=== PATIENT | female | born 1995 | race Caucasian/White ===

== ENCOUNTER 2017-04-18 06:00 | Inpatient (IN) ==
[2017-04-18] MEDS ORDERED: D5LR 1,000 ML IV PRN (06:07)
[2017-04-18] MEDS ORDERED: ACETAMINOPHEN 500 MG TABLET PO PRN (06:07)
[2017-04-18] MEDS ORDERED: LIDOCAINE 1% (10mg/ml) 2mL INJ PF SDV ID PRN (06:07)
[2017-04-18] MEDS ORDERED: OXYTOCIN DRIP 30 UNIT/500 ML ML IV PRN (06:07)
[2017-04-18] MEDS ORDERED: METHYLERGONOVINE 0.2 MG/ML INJECTION IM PRN (06:07)
[2017-04-18] MEDS ORDERED: CALCIUM CARBONATE Chewable 500mg TABLET PO PRN (06:07)
[2017-04-18] MEDS ORDERED: MAG-AL + SIM ORAL LIQUID 30ml PO PRN (06:07)
--- OUTSIDE RECORDS SUMMARY | 2017-04-18 06:09 | External Medical Summary | Continuity of Care Document ---
:1995 Author Organization [facility] Address [address] [place], [place] [id number] Phone Support Name Relationship Address Phone Wai Oconnor parent [address] [phone] [place] [address] Allergies, Adverse Reactions, Alerts Substance Reaction Severity Status No Known Drug Allergies Unknown Active Medications Medication Instructions Dosage Effective Dates Status Comments (start - stop) aspirin 81 mg take 1 tablet by 81 MG - Active tablet,delayed ORAL route every release day Vitamin take 1 tablet by Not Available - Active tablet oral route every day Problems Condition Effective Dates (start - stop) Clinical Status Encounter for suprvsn of normal - , second trimester 24 weeks gestation of - Encntr screen for infections w sexl - mode of transmiss Encounter for screening for oth - infec/parastc diseases Encounter for suprvsn of normal - , first trimester Encounter for screening of - mother 9 weeks gestation of - Encntr for suprvsn of normal first - preg, second trimester 19 weeks gestation of - Menometrorrhagia Encounter for surveillance of contraceptive pills Menometrorrhagia Encounter for surveillance of contraceptive pills Menometrorrhagia - Maternal care for excess growth, - second tri, unsp 19 weeks gestation of - Encntr for suprvsn of normal first - preg, first trimester Less than 8 weeks gestation of - Encntr for suprvsn of normal first - preg, first trimester 13 weeks gestation of - Procedures Procedure Date OB Visit No Charge Results Test Name Date and Time Measure Units Reference Range Abnormal Flag Comments Unknown Advance Directives Directive Yes / No Effective Date File Name Unknown Encounters Encounter Practice Location Reason(s) Diagnoses Date Provider Care Team Description For Visit Members Enoch Mtz Encounter for Dec- Mars Referring In Womens suprvsn of normal 3-201 Izabela. Provider: Jj HERNANDEZ, , second 7 [address] [id number] weeks Medical [facility], 1522, gestation of Center [address] [place] [address], , [facility], 120, [place] , [id number], Smith [facility], [place], [address]. tel:[phone] tel: , . [id number] tel: [phone] Enoch Mtz Encntr for Brandin-0 Mars Referring In Womens suprvsn of normal 8-201 Izabela. Provider: Jj HERNANDEZ, first preg, 7 [address] second Medical [facility], 1522, [email or web address] weeks Center [address] [place] [address], gestation of Dr [facility], 120, [place] , [id number], Smith [facility], [place], [address]. tel:[phone] tel: , [place]. [id number] tel: [phone] Enoch Mtz Maternal care for Brandin-0 Mars Referring In Womens Ultrasound excess 8-201 Izabela. Provider: Jj HERNANDEZ, growth, second 7 [address] tri, [id number] weeks Medical [facility], 1522, gestation of Center [address] [place] [address], Dr [facility], [address], [place] , [id number], Smith [facility], [place], [address]. tel:[phone] tel: , . [id number] tel: [phone] Enoch Mtz Encntr for Apr-2 Mars Referring In Womens suprvsn of normal 5-201 Izabela. Provider: Jj HERNANDEZ, first preg, first 7 [address] [email or web address] weeks Medical [facility], 1522, gestation of Center [address] [place] [address], , [facility], 120, Center , [id number], Smith [facility], [place], [address]. tel: tel: , [place]. [id number] tel: [phone] Enoch Mtz Encntr screen for Mar-2 Mars Referring In Womens infections w sexl 8-201 Izabela. Provider: Jj HERNANDEZ, mode of 7 [address] Box transmissEncounte [facility], 1522, r for screening Center [address] [place] [address], for oth , [facility], infec/parastc 120, Center , [id number], diseasesEncounter Smith [facility]tz, [place], [address]. tel: normal , tel: [facility] , [place]. [id number] trimesterEncounte tel: r for [phone] screening of mother9 weeks gestation of [facility] for Mar-0 Mars Referring In Womens suprvsn of normal 8-201 Izabela. Provider: Jj HERNANDEZ, first preg, first 7 [address] Box trimesterLess Medical [facility], 1522, than 8 weeks [address] [place] [address], gestation of Dr, [facility], 120, [place] , [id number], Smith [facility], [place], [address]. tel:[phone] tel: , [place]. [id number] tel: [phone] Enoch Mtz MenometrorrhagiaE Mar-2 Mars Referring In Womens ncounter for 8-201 Izabela. Provider: Jj HERNANDEZ, surveillance of [address] Box contraceptive Medical [facility], 1522, pills Center [facility] Kristine, , [facility], 120, Center , [id number], [facility], [place], [address]. tel:[phone] tel: , [place]. [id number] tel: [phone] Enoch Mtz Menometrorrhagia Mar-2 Mars Referring In Womens Ultrasound 8-201 Izabela. Provider: Jj HERNANDEZ, 6 [address] Medical [facility], 1522, Center [address] Kristine, [facility], 120, [place] , [id number], [facility], [place], [address]. tel: [phone] tel: , . [id number] tel: [phone] Enoch Mtz MenometrorrhagiaE Mars Referring [facility]201 Izabela. Provider: Health MARY, surveillance of 6 [address] PO Box contraceptive Medical [facility], 1522, pills Center [address] Kristine, [facility], 120, [place] , [id number], Smith [facility], [place], [address]. tel: [phone] tel:[phone] , . [id number] tel: [phone] Family History Family Member Diagnosis Age At Onset Maternal Grandmother Cancer, breast Immunizations Vaccine Date Status Comments Unknown Payers Payer name Insurance type Covered green party ID Authorization(s) [facility] [id number] Social History Type Description Quantity Date Captured Alcohol Use Details No Caffeine Use Details Unknown Tobacco Use Status Smoking Status Former smoker Vital Signs Date / Height Weight BMI Pulse Blood Temperature Respiratory Body Head BMI Time: Rate Pressure Rate Surface Circumference percentile Area 215.40 35.8 125/81 -2017 lbs 4 mm[Hg] 10:00 kg/m AM eter (2) 35.0 -2017 9 9:38 kg/m AM eter (2) Chief Complaint And Reason For Visit Unknown Chief Complaint And Reason For Visit Reason For Referral Reason For Referral Unknown Plan Of Care Date Type Action Status Goal Tobacco cessation counseling completed Goal Tobacco cessation counseling completed Future Order: Lab Order Pap Smear With HPV Reflex If Ordered ASCUS ([id number]) Future Order: Radiology Order Transvaginal Pelvic Ultrasound Ordered ([id number]) Future Order: Radiology Order Complete OB Ultrasound > 14 Ordered Weeks ([id number]) Date Type Problem Goal Intervention Status Start Date Unknown. History Of Present Illness Encounter Date Complaint History Of Present Illness This patient has no known history of present illness Functional Status Encounter Date Functional Assessment Cognitive Assessment Unknown Medications Administered Medication Instructions Dosage Effective Dates (start - stop) Status Comments Drug Treatment Unknown Instructions Date Instruction Additional Information use of any medications (including supplements, vitamins, herbs, OTC drugs) childbirth classes / hospital facilities new ob handbook Acog Docs HIV and other routine tests risk factors identified by history anticipated course of care nutrition and weight gain counseling, special diet toxoplasmosis precautions (cats / raw meat) sexual activity exercise indications for ultrasound influenza vaccine environmental / work hazards travel smoking counseling domestic violence seat belt use hospital registration genetic testing
--- OUTSIDE RECORDS SUMMARY | 2017-04-18 06:10 | External Medical Summary | Continuity of Care Document ---
:1995 Author Organization [facility] Address [address] [place], [place] [id number] Phone Support Name Relationship Address Phone Wai Oconnor parent [address] [phone] [place] [address] Allergies, Adverse Reactions, Alerts Substance Reaction Severity [...] Encounter for suprvsn of normal - , third trimester 30 weeks gestation of - Encntr screen for infections w sexl - mode of transmiss Encounter for suprvsn of normal - , first trimester Encounter for screening for oth - infec/parastc diseases Encounter for screening of - mother 9 [...] first trimester 13 weeks gestation of - Encounter for suprvsn of normal - , second trimester 24 weeks gestation of - Encounter for suprvsn of normal - , third trimester 32 weeks gestation of - Procedures Procedure Date OB Visit No Charge Results Test Name Date and Time Measure Units Reference Range Abnormal Flag Comments Unknown Advance Directives Directive Yes / No Effective Date File Name Unknown Encounters Encounter Practice Location Reason(s) Diagnoses Date Provider Care Team Description For Visit Members Enoch Mtz Encounter for Feb- Mars Referring In Womens suprvsn of normal 6-201 Izabela. Provider: Health PA, , third [address] [id number] weeks Medical [facility], 1522, gestation of Center [address] [place] [address] , [facility], 120, [place] , [id number], Smith [facility], [place], [address]. tel:[phone] tel: , . [id number] tel: [phone] Enoch Mtz Encounter for Mars Referring In Womens suprvsn of normal 2-201 Izabela. Provider: Health PA, , third [address] Box [id number] weeks Medical [facility], 1522, gestation of Center [address] [place] [address], , [facility], 120, [place] , [id number], Smith [facility], [place], [address]. tel:[phone] tel: , . [id number] tel: [phone] Enoch Mtz Encounter for Mars Referring In Womens suprvsn of normal 3-201 Izabela. Provider: Health PA, , second 7 [address] Box [id number] weeks Medical [facility], 1522, gestation of Center [address] [place] [address] , [facility], 120, [place] , [id number], Smith [facility], [place], [address]. tel:[phone] tel: , . [id number] tel: [phone] Enoch Mtz Encntr for Brandin-0 Mars Referring In Womens suprvsn of normal 8-201 Izabela. Provider: Jj HERNANDEZ, first preg, 7 [address] Box second Medical [facility], 1522, [id number] weeks Center [address] [place] [address], gestation of Dr, [facility], 120, Center , [id number], Smith [facility]tz, [place], [address]. tel:[phone] tel:+ , [place]. [id number] tel: [phone] Enoch Mtz Maternal care for Brandin-0 Mars Referring In Womens Ultrasound excess 8-201 Izabela. Provider: Jj HERNANDEZ, growth, second 7 [address] Box tri, [id number] weeks Medical [facility], 1522, gestation of Center [address] [place] [address], , [facility], 120, Center , [id number], Smith [facility], [place], [address]. tel:[phone] tel: , [place]. [id number] tel: [phone] Enoch Mtz Encntr for Apr-2 Mars Referring In Womens suprvsn of normal 5-201 Izabela. Provider: Jj HERNANDEZ, first preg, first 7 [address] Box [id number] weeks Medical [facility], 1522, gestation of Center [address] [place] [address], , [facility], 120, Center , [id number], Smith [facility]tz, [place], [address]. tel:[phone] tel: , [place]. [id number] tel: [phone] Enoch Mtz Encntr screen for Mar-2 Mars Referring In Womens infections w sexl 8-201 Izabela. Provider: Jj HERNANDEZ, mode of [address] Box [facility], r for suprvsn of Center [address], normal , Dr [facility], first 120, Center , [id number], trimesterEncounte Smith [facility]tz, [place], [address]. tel:+ for oth [phone] tel: infec/parastc , [place]. [id number] [facility] tel: for [phone] screening of mother9 weeks gestation of [facility] Encntr for Mar-0 Mars Referring In Womens suprvsn of normal 8-201 Izabela. Provider: Jj HERNANDEZ, first preg, first 7 [address] PO Box trimesterLess [facility], 1522, than 8 weeks Center [facility] Kristine, gestation of , [facility], 120, Center , [id number], Smith [facility]tz, [place], [address]. tel:[phone] tel: , [place]. [id number] tel: [phone] Associates [facility] MenometrorrhagiaE Mar-2 Mars Referring In Womens ncounter for 8- Izabela. Provider: Jj HERNANDEZ, surveillance of 6 [address] PO Box contraceptive [facility], 1522, pills Center [facility] Dr Kristine, [facility], 120, Center , [id number], Smith [facility], [place], [address]. tel:[phone] tel: , [place]. [id number] tel: [phone] [facility] Menometrorrhagia Mar-2 Mars Referring In Womens Ultrasound 8- Izabela. Provider: Jj HERNANDEZ, 6 [address] PO Box [facility], 1522, Center [address], , [facility], 120, Center , [id number], Smith [facility], [place], [address]. tel:[phone] tel: , [place]. [id number] tel: [phone] [facility] MenometrorrhagiaE Mar-2 Mars Referring In Womens ncounter for 4-201 Izabela. Provider: Jj HERNANDEZ, surveillance of 6 [address] PO Box contraceptive [facility], 1522, pills Center [address]ine, [facility], [address], [place] [id number], [facility], [place], [address]. tel:[phone] tel: , . [id number] tel: [phone] Family History Family Member Diagnosis Age At Onset Maternal Grandmother Cancer, breast Immunizations Vaccine Date Status Comments Unknown Payers Payer name Insurance type Covered libertarian ID Authorization(s) AZALIA CLAY [id number] [employer] [place] - Medicaid [place] [id number] Social History Type Description Quantity Date Captured Alcohol Use Details No Caffeine Use Details Unknown Tobacco Use Status Smoking Status Former smoker Vital Signs Date / Height Weight BMI Pulse Blood Temperature Respiratory Body Head BMI Time: Rate Pressure Rate Surface Circumference percentile Area 222.90 37.0 133/ lbs 9 mm[Hg] 1:55 kg/m PM eter (2) Chief Complaint And Reason For Visit Unknown Chief Complaint And Reason For Visit Reason For Referral Reason For Referral Unknown Plan Of Care Date Type Action Status Goal Tobacco cessation counseling completed Goal Tobacco cessation counseling completed Appointment Wanda Hitchcock BOOKED Future Order: Lab Order Pap Smear With HPV Reflex If Ordered ASCUS ([id number]) Future Order: Radiology Order Transvaginal Pelvic Ultrasound Ordered ([id number]) Future Order: Radiology Order Complete OB Ultrasound > 14 Ordered Weeks ([id number]) Date Type Problem Goal Intervention Status Start Date Unknown. History Of Present Illness Encounter Date Complaint History Of Present Illness This patient has no known history of present illness Functional Status Encounter Date Functional Assessment Cognitive Assessment Unknown Medications Administered Medication Instructions Dosage Effective Dates (start - stop) Status Comments Drug Treatment Unknown Instructions Date Instruction Additional Information gestational glucose lab screening use of any medications (including supplements, vitamins, [...]
--- OUTSIDE RECORDS SUMMARY | 2017-04-18 06:10 | External Medical Summary | Referral Summary ---
:1995 Author Organization [facility] Address [address] [place] [address] [place] [address] Care Team Providers Name Role Phone No PCP, States Primary Care Physician Encounter [facility] [id number] Date(s): 07/13/15 - 07/13/15 [facility] Kat [facility] [address] [place] [address]- [place] Discharge Diagnosis: Bacterial vaginosis Discharge Diagnosis: Depression with anxiety Discharge Diagnosis: High risk sexual behavior Discharge Disposition: 01-Home or Self Care Attending Physician: Dianna Johnson APRN Admitting Physician: Dianna Johnson APRN Vital Signs Most recent to oldest [Reference Range]: 1 Peripheral Pulse Rate [60-100 bpm] 76 bpm (07/13/15 8:35 AM) Blood Pressure [90-140/60-90 mmHg] 118/70 mmHg (07/13/15 8:35 AM) Problem List No data available for this section Allergies, Adverse Reactions, Alerts No Known Medication Allergies Medications No Known Medications Results No data available for this section Immunizations Vaccine Date Refusal Reason diphtheria/pertussis, acel/tetanus ped 02/05/10 varicella virus vaccine 02/04/09 Procedures No data available for this section Social History Social History Type Response Smoking Status Current every day smoker Assessment and Plan No data available for this section
--- OUTSIDE RECORDS SUMMARY | 2017-04-18 06:10 | External Medical Summary | Continuity of Care Document ---
:1995 Author Organization [facility] Address [address] [place], [place] [id number] Phone Support Name Relationship Address Phone Wai Oconnor parent [address] [phone] [place] [address] Allergies, Adverse Reactions, Alerts Substance Reaction Severity [...] suprvsn of normal - , third trimester 34 weeks gestation of - Encntr screen for [...] third trimester 30 weeks gestation of - Encounter for suprvsn of normal - , third trimester Encounter For Screening For - Streptococcus B 36 weeks gestation of - Encounter for suprvsn of normal - , third trimester 32 weeks gestation of - Encounter for suprvsn of normal - , third trimester 37 weeks gestation of - Procedures Procedure Date Immuniz admnin, 1 vac, sngl/combo 19 Yrs + TDAP VACCINE >7 IM OB Visit No Charge Results Test Name Date and Time Measure Units Reference Range Abnormal Flag Comments Unknown Advance Directives Directive Yes / No Effective Date File Name Unknown Encounters Encounter Practice Location Reason(s) Diagnoses Date Provider Care Team Description For Visit Members Enoch Mtz Encounter for Oct-1 Mars Referring In Womens suprvsn of normal 0-201 Izabela. Provider: Jj HERNANDEZ, , third 7 [address] [id number] weeks Medical [facility], 1522, gestation of Center [address] [place] [address], Shahid James, [address], [place] [id number], [place], [place], [address]. tel:[phone] tel: , . [id number] tel: [phone] Enoch Mtz Encounter for Oct-0 Mars Referring In Womens suprvsn of normal 3-201 Izabela. Provider: Jj HERNANDEZ, , third 7 [address] Box trimesterEncounte Medical [facility], 1522, r For Center [address] [place] [address], Screening For Shahid James [facility], Streptococcus B36 [address] [id number], weeks gestation [place], [place], [address]. tel:[phone] tel: , [place]. [id number] tel: [phone] Enoch Mtz Encounter for Sep-1 Mars Referring In Womens suprvsn of normal 9-201 Izabela. Provider: Health PA, , third 7 [address] [email or web address] weeks Medical [place], 1522, gestation of Center [address], , [facility], 120, Center , [id number], Smith [place], [place], [address]. tel:[phone] tel: , [place]. [id number] tel: [phone] Enoch Mtz Encounter for Sep-0 Mars Referring In Womens suprvsn of normal 6-201 Izabela. Provider: Health PA, , third 7 [address] [id number] weeks Medical [place], 1522, gestation of Center [address], , [facility], 120, [place] , [id number], [place], [place], [address]. tel:[phone] tel: , [place]. [id number] tel: [phone] Enoch Mtz Encounter for Aug-2 Mars Referring In Womens suprvsn of normal 2-201 Izabela. Provider: Health PA, , third 7 [address] [email or web address] weeks Medical [place], 1522, gestation of Center [address], , [facility], 120, Center , [id number], Smith [place]tz, [place], [address]. tel:[phone] tel: , [place]. [id number] tel: [phone] Enoch Mtz Encounter for Siva-1 Mars Referring In Womens suprvsn of normal 3-201 Izabela. Provider: Health PA, , second 7 [address] [id number] weeks Medical [place], 1522, gestation of Center [address], , [facility], 120, Center , [id number], Smith [place]tz, [place], [address]. tel:[phone] tel: , . [id number] tel: [phone] Enoch Mtz Encntr for Brandin-0 Mars Referring In Womens suprvsn of normal 8-201 Izabela. Provider: Jj HERNANDEZ, first preg, 7 [address] PO Box second Medical [facility], 1522, weeks Center [address] [place] [address], gestation of Dr, [facility], 120, Center , [id number], Smith Mtz, [place], [address]. tel:[phone] tel: , [place]. [id number] tel: [phone] Enoch Mtz Maternal care for Brandin-0 Mars Referring In Womens Ultrasound excess 8-201 Izabela. Provider: Jj HERNANDEZ, growth, second 7 [address] PO Box tri, [id number] weeks Medical [facility], 1522, gestation of Center [address] [place] [address], , [facility], 120, [place] , [id number], [place], [place], [address]. tel:[phone] tel: , [place]. [id number] tel: [phone] Enoch Mtz Encntr for Apr-2 Mars Referring In Womens suprvsn of normal 5-201 Izabela. Provider: Jj HERNANDEZ, first preg, first 7 [address] PO Box weeks Medical [facility], 1522, gestation of Center [address] [place] [address], , [facility], 120, [place] , [id number], Smith [place]tz, [place], [address]. tel:[phone] tel: , [place]. [id number] tel: [phone] Enoch Mtz Encntr screen for Mar-2 Mars Referring In Womens infections w sexl 8-201 Izabela. Provider: Jj HERNANDEZ, mode of 7 [address] PO Box transmissEncounte [facility], 1522, r for screening Center [address] [place] [address], for oth , [facility], infec/parastc 120, [place] , [id number], diseasesEncounter [place], [place], [address]. tel: normal , tel: [facility] , [place]. [id number] trimesterEncounte tel: r for [phone] screening of mother9 weeks gestation of Associates [facility] Encntr for Mar-0 Mars Referring In Womens suprvsn of normal 8- Izabela. Provider: Jj HERNANDEZ, first preg, first 7 [address] PO Box trimesterLess Medical [place], 1522, than 8 weeks Center [facility] [place], gestation of , [facility], 120, Center , [id number], [place], [place], [address]. tel: [phone] tel: , [place]. [id number] tel: [phone] [facility] MenometrorrhagiaE Mar-2 Mars Referring In Womens ncounter for 8 Izabela. Provider: Jj HERNANDEZ, surveillance of 6 [address] PO Box contraceptive Medical [place], 1522, pills Center [facility] [address], [facility], 120, Center , [id number], [place], [place], [address]. tel:[phone] tel: , [place]. [id number] tel: [phone] Enoch Mtz Menometrorrhagia Mar-2 Mars Referring In Womens Ultrasound 8- Izabela. Provider: jJ HERNANDEZ, 6 [address] PO Box Medical [place], 1522, Center [address], , [facility], 120, Center , [id number], Smith [place], [place], [address]. tel:[phone] tel: , [place]. [id number] tel: [phone] Enoch Mtz MenometrorrhagiaE Mar-2 Mars Referring In Womens ncounter for 4- Izabela. Provider: Jj HERNANDEZ, surveillance of 6 [address] PO Box contraceptive Medical [place], 1522, pills Center [address]ine, [facility], 120, Center , [id number], [place], [place], [address]. tel:[phone] tel: , [place]. [id number] tel: [phone] Family History Family Member Diagnosis Age At Onset Maternal Grandmother Cancer, breast Immunizations Vaccine Date Status Comments Influenza, injectable, completed Source: New Immunization Record quadrivalent, preservative free, 3 yrs or older Tdap completed Source: New Immunization Record Payers Payer name Insurance type Covered libertarian ID Authorization(s) [facility] [id number] [place] Medicaid [place] [id number] [facility] [id number] [place] - Medicaid MC [id number] [facility] [id number] [place] - Medicaid MC [id number] Social History Type Description Quantity Date Captured Alcohol Use Details No Caffeine Use Details Unknown Tobacco Use Status Smoking Status Former smoker Vital Signs Date / Height Weight BMI Pulse Blood Temperature Respiratory Body Head BMI Time: Rate Pressure Rate Surface Circumference percentile Area 37.0 -2016 9 11:11 kg/m AM eter (2) 225.30 37.4 132/88 -2016 lbs 9 mm[Hg] 11:16 kg/m AM eter (2) Chief Complaint And [...] Order: Radiology Order Transvaginal Pelvic Ultrasound Ordered ([id number]) Future Order: Radiology Order Complete OB Ultrasound > 14 Ordered Weeks ([id number]) Date Type Problem Goal Intervention Status Start Date Unknown. History Of Present Illness Encounter Date Complaint History Of Present Illness This patient has no known history of present illness Functional Status Encounter Date Functional Assessment Cognitive Assessment Unknown Medications Administered Medication Instructions Dosage Effective Dates (start - stop) Status Comments Drug Treatment Unknown Instructions Date Instruction Additional Information labor signs group B strep screening gestational glucose lab screening use of any [...]
--- OUTSIDE RECORDS SUMMARY | 2017-04-18 06:10 | External Medical Summary | Continuity of Care Document ---
:1995 Demographics Phone Unavailable Preferred Language Unknown Marital Status Unknown Zoroastrianism Affiliation Unknown Race Unknown Ethnic Group Unknown Author Organization [facility] Allergies Active Description Code Type Severity Reaction Onset Reported/ Identified Relationship Clinical to Patient Status Yes No Known 23293 3 N/A N/A Drug 0 Allergies Yes No Known F0019 Drug Unknown N/A 09/24/2012 Allergies 11332 Aller gy Medications Medication Packaging Start Date Stop Date Route Dosage Sig Package 09/17/2015 08/24/2016 SPRINTEC take 1 tablet by oral route every day Tablet 11/24/2016 ASPIRIN EC take 1 tablet by ORAL route every day Problems Date Dx Attending Type Code Diagnosis Diagnosed By Coded 09/26/2012 Ot 642.41 09/26/2012 Ot V27.0 02/04/2015 Ot 649.63 02/23/2015 ABIDA BROWN, SHAYAN Ot 787.01 L 09/20/2015 Izabela Mars N92.1 Menometrorrhagia 09/21/2015 Izabela Mars N92.1 Menometrorrhagia 01/06/2016 Mars, Izabela Falk N92.1 Menometrorrhagia 01/06/2016 Izabela Mars Z30.41 Encounter for surveillance of contraceptive pills 01/06/2016 Izabela Mars N92.1 Menometrorrhagia 01/06/2016 Izabela Mars N92.1 Menometrorrhagia 01/06/2016 Izabela Mars Z30.41 Encounter for surveillance of contraceptive pills 12/01/2016 Izabela Mars O36.62x0 Maternal care for excess growth, second tri, unsp 12/01/2016 Izabela Mars Z3A.19 19 weeks gestation of Procedures Code Description Performed By Performed On 09/17/2015 33502 Venpnctr fngr/heel/ear stick routne TSH 09/17/2015 88646 09/17/2015 91695 Office/outpatient visit,[facility] 09/21/2015 52094 Ultrasound, transvaginal No 09/21/2015 48840 Charge Office Visit 12/01/2016 54939 Ultrasnd exam of preg uterus, compl 03/14/2017 74580 Immuniz admnin, 1 vac, sngl/combo TDAP 03/14/2017 76750 VACCINE >7 IM 03/28/2017 79932 Immuniz admnin, 1 vac, sngl/combo Flu 03/28/2017 13576 Vaccine - Quadrivalent Results Encounters ACCT No. Visit Discharge Status Pt. Type Provider Facility Loc./Unit Complaint Date/Time [id number] 09/24/2013 ACT Unknown [id number] 13:35:00 [id number] 02/04/2015 02/04/2015 CLS Outpatien ABIDA [facility] RAD 90 09:10:00 23:59:59 t , [facility] [id number] 02/04/2015 Document 17 09:09:00 Registrat ion [id number] 03/09/2012 Document 88 09:52:00 Registrat ion [id number] 03/14/2017 03/14/2017 CLS Outpatien Mars, 11:05:00 23:59:59 marlene Fenton [id number] 03/01/2017 03/01/2017 CLS Outpatien Mars, 09:15:00 23:59:59 marlene Fenton [id number] 02/14/2017 02/14/2017 CLS Outpatien Mars, 13:50:00 23:59:59 marlene Fenton [id number] 01/25/2017 01/25/2017 CLS Outpatien Mars, 14:14:00 23:59:59 marlene Fenton [id number] 01/05/2017 01/05/2017 CLS Outpatien Mars, 09:40:00 23:59:59 marlene Fenton [id number] 12/01/2016 12/01/2016 CLS Outpatien Mars, 11:00:00 23:59:59 marlene Fenton [id number] 12/01/2016 12/01/2016 CLS Outpatien Mars, 10:15:00 23:59:59 marlene Fenton [id number] 10/18/2016 10/18/2016 CLS Outpatien Mars, 11:05:00 23:59:59 marlene Gurrola Eliceo [id number] 09/20/2016 09/20/2016 CLS Outpatien Mars, 10:15:00 23:59:59 t Izabela Fenton [id number] 08/31/2016 08/31/2016 CLS Outpatien Mars, 13:15:00 23:59:59 t Izabela Fenton [id number] 09/21/2015 09/21/2015 CLS Outpatien Mars, 13:55:00 23:59:59 t Izabela Fenton [id number] 09/21/2015 09/21/2015 CLS Outpatien Mars, 13:15:00 23:59:59 t Izabela Fenton [id number] 09/17/2015 09/17/2015 CLS Outpatien Mars, 10:15:00 23:59:59 t Izabela Fenton [id number] 04/11/2017 Document 10:15:00 Registrat ion [id number] 04/04/2017 Document 10:30:00 Registrat ion [id number] 03/28/2017 Document 13:45:00 Registrat ion
--- OUTSIDE RECORDS SUMMARY | 2017-04-18 06:10 | External Medical Summary | Continuity of Care Document ---
:1995 Author Organization [facility] [facility] Address [address] [place], [place] [address] Phone Support Name Relationship Address Phone Wai Oconnor parent [address] [phone] [place] [address] Allergies, Adverse Reactions, Alerts Substance Reaction Severity [...] Effective Dates (start - stop) Clinical Status Encntr screen for infections w sexl - [...] third trimester 30 weeks gestation of - Procedures Procedure Date Unknown Results Test Name Date and Time Measure Units Reference Range Abnormal Flag Comments Unknown Advance Directives Directive Yes / No Effective Date File Name Unknown Encounters Encounter Practice Location Reason(s) Diagnoses Date Provider Care Team Description For Visit Members Enoch Mtz Encounter for Mars Referring In Womens suprvsn of normal 2-201 Izabela. Provider: Jj HERNANDEZ, , third 7 [address] Box [id number] weeks Medical [facility], 1522, gestation of Center [address] [place] [address] , [facility], 120, [place] , , Smith [place]tz, [place], [address]. tel:[phone] tel: , [place]. [id number] tel: [phone] Enoch Mtz Aug-0 Mars Referring In Womens 2-201 Izabela. Provider: Jj HERNANDEZ, 7 [address] PO Box Medical [facility], 1522, Center [facility] [address], , [facility], 120, [place] , , Smith [place], [place], [address]. tel:[phone] tel: , [place]. [id number] tel: [phone] Enoch Mtz Encounter for Dec- Mars Referring In Womens suprvsn of normal 3-201 Izabela. Provider: Jj HERNANDEZ, , second 7 [address] PO Box [id number] weeks Medical [place], 1522, gestation of Center [address] [place] [address], , [facility], 120, [place] , [id number], Smith [place]tz, [place], [address]. tel:[phone] tel: , [place]. [id number] tel: [phone] Enoch Mtz Encntr for Brandin-0 Mars Referring In Womens suprvsn of normal 8-201 Izabela. Provider: Jj HERNANDEZ, first preg, 7 700 [address] PO Box second Medical [facility], 1522, [email or web address] weeks Center [address] [place] [address], gestation of Dr [facility], 120, Center , [id number], Smith [place]tz, [place], [address]. tel: tel: , [place]. [id number] tel: [phone] Enoch Mtz Maternal care for Brandin-0 Mars Referring In Womens Ultrasound excess 8-201 Izabela. Provider: Jj HERNANDEZ, growth, second 7 [address] PO Box tri, [email or web address] weeks [facility], 1522, gestation of Center [address] [place] [address], , [facility], 120, Center , [id number], [place], [place], [address]. tel: tel: , [place]. [id number] tel:[phone] Enoch Mtz Encntr for Apr-2 Mars Referring In Womens suprvsn of normal 5-201 Izabela. Provider: Jj HERNANDEZ, first preg, first 7 [address] PO Box [email or web address] weeks Medical [facility], 1522, gestation of Center [address] [place] [address], , [facility], 120, Center , [id number], [place]tz, [place], [address]. tel: tel: , [place]. [id number] tel: [phone] Enoch Mtz Encntr screen for Mar-2 Mars Referring In Womens infections w sexl 8-201 Izabela. Provider: Jj HERNANDEZ, mode of 7 [address] PO Box transmissEncounte [facility], 1522, r for screening Center [address] [place] [address], for oth , [facility], infec/parastc 120, [place] , [id number], diseasesEncounter [place], [place], [address]. tel: normal , tel: [facility] , . [id number] trimesterEncounte tel: r for [phone] screening of mother9 weeks gestation of Associates [facility] Encntr for Mar-0 Mars Referring In Womens suprvsn of normal 8-201 Izabela. Provider: Jj HERNANDEZ, first preg, first 7 700 [address] PO Box trimesterLess Medical [place], 1522, than 8 weeks Center [address], gestation of , [facility], 120, Center , [id number], [place], [place], [address]. tel:[phone] tel: , [place]. [id number] tel: [phone] Enoch Mtz MenometrorrhagiaE Mar-2 Mars Referring In Womens [facility] for 8- Izabela. Provider: Jj HERNANDEZ, surveillance of 6 [address] PO Box contraceptive [facility] [place], 1522, pills Center [address], [facility], 120, Center , [id number], [place], [place], [address]. tel:[phone] tel: , [place]. [id number] tel: [phone] Enoch Mtz Menometrorrhagia Mar-2 Mars Referring In Womens Ultrasound 8- Izabela. Provider: Jj HERNANDEZ, 6 [address]ianna PO Box Medical [place], 1522, Center [address], , [facility], 120, [place] , [id number], [place], [place], [address]. tel:[phone] tel: , [place]. [id number] tel: [phone] Enoch Mtz MenometrorrhagiaE Mar-2 Mars Referring In Womens [facility] for 4- Izabela. Provider: Jj HERNANDEZ, surveillance of 6 700 [address]ianna PO Box contraceptive [facility] [place], 1522, pills Center [address], [facility], 120, [place] , [id number], Smith [place], [place], [address]. tel:[phone] tel: , [place]. [id number] tel: [phone] Family History Family Member Diagnosis Age At Onset Maternal Grandmother Cancer, breast Immunizations Vaccine Date Status Comments Unknown Payers Payer name Insurance type Covered alliance party ID Authorization(s) AZALIA CLAY [id number] [employer] [place] - Medicaid MC [id number] Social History Type Description Quantity Date Captured Alcohol Use Details No Caffeine Use Details Unknown Tobacco Use Status Smoking Status Former smoker Vital Signs Date / Height Weight BMI Pulse Blood Temperature Respiratory Body Head BMI Time: Rate Pressure Rate Surface Circumference percentile Area 4 2:17 kg/m PM eter (2) Chief Complaint And [...] Order: Radiology Order Transvaginal Pelvic Ultrasound Ordered ([id number]) Future Order: Radiology Order Complete OB Ultrasound > 14 Ordered Weeks ([id number]) Date Type Problem Goal Intervention Status Start [...]
--- OUTSIDE RECORDS SUMMARY | 2017-04-18 06:10 | External Medical Summary | Referral Summary ---
:1995 Author Organization [facility] Kat [facility] Address [address] [place] [address] [place] [address] Care Team Providers Name Role Phone No PCP, States Primary Care Physician Encounter [facility] [id number] Date(s): 06/29/15 - 06/29/15 Via MARY Kat Newton [address] [place] [address] [place] Discharge Diagnosis: History of UTI Discharge Diagnosis: Vaginitis Discharge Diagnosis: Female pelvic pain Discharge Disposition: 01-Home or Self Care Attending Physician: Dianna Johnson APRN Admitting Physician: Dianna Johnson APRN Vital Signs Most recent to oldest [Reference Range]: 1 Temperature Tympanic [36.6-38.1 degC] 36.5 degC *LOW* (06/29/15 9:43 AM) Peripheral Pulse Rate [60-100 bpm] 55 bpm *LOW* (06/29/15 9:43 AM) Blood Pressure [90-140/60-90 mmHg] 118/74 mmHg (06/29/15 9:43 AM) SpO2 98 % (06/29/15 9:43 AM) Problem List No data available for this section Allergies, Adverse Reactions, Alerts No Known Medication Allergies Medications No Known Medications Results Urinalysis Most recent to oldest [Reference Range]: 1 UA Color Yellow (06/29/15 10:47 AM) UA Appear Clear (06/29/15 10:47 AM) UA pH [5.0-8.0] 6.0 (06/29/15 10:47 AM) UA Leuk Est [Negative] Negative (06/29/15 10:47 AM) UA Nitrite [Negative] Negative (06/29/15 10:47 AM) UA Protein [Negative] Negative (06/29/15 10:47 AM) UA Glucose [Negative] Negative (06/29/15 10:47 AM) UA Ketones [Negative] Negative (06/29/15 10:47 AM) UA Urobilinogen [<=1.0 mg/dL] 0.2 mg/dL (06/29/15 10:47 AM) UA Bili [Negative] Negative (06/29/15 10:47 AM) UA Blood [Negative] Negative (06/29/15 10:47 AM) UA Spec Grav [1.003-1.030] >=1.030 (06/29/15 10:47 AM) Type Clean Catch 1 (06/29/15 10:47 AM) 1Result Comment: 9 mls urine submitted for analysis Immunizations Vaccine Date Refusal Reason diphtheria/pertussis, acel/tetanus ped 02/05/10 varicella virus vaccine 02/04/09 Procedures No data available for this section Social History Social History Type Response Smoking Status Current every day smoker Assessment and Plan No data available for this section
--- OUTSIDE RECORDS SUMMARY | 2017-04-18 06:10 | External Medical Summary | Continuity of Care Document ---
:1995 Author Organization [facility] Address [address] [place], [place] [id number] Phone Support Name Relationship Address Phone Wai Oconnor parent [address] [phone] [place] [address] Allergies, Adverse Reactions, Alerts Substance Reaction Severity [...] third trimester 32 weeks gestation of - Encntr screen for [...] Less than 8 weeks gestation of - 13 weeks gestation of - Encntr for suprvsn of normal first - preg, first trimester Encounter for suprvsn of normal - , second trimester 24 weeks gestation of - Encounter for suprvsn of normal - , third trimester 30 weeks gestation of - Encounter for suprvsn of normal - , third trimester 34 weeks gestation of - Procedures Procedure Date OB Visit No 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 Results Test Name Date and Time Measure Units Reference Range Abnormal Flag Comments Panel Description: Glucose [Mass/volume] in Serum or Plasma --1 hour post 50 g glucose PO GLUCOSE, 131 mg/dL <140 N Test performed at [employer] GESTATIONAL SCREEN 10:25:00 [id number] ([id number] [place] [address]Somxedom: CHAYO BAY DO,MPH Panel Description: HEMOGLOBIN + HEMATOCRIT HEMOGLOBIN 10:25:00 12.0 g/dL 11.7-15.5 N HEMATOCRIT 10:25:00 35.2 % 35.0-45.0 N REPORT COMMENT:FASTING :NOTest performed at [id number] [place] [address]Yzwajsdw: CHAYO BAY DO,MPH Advance Directives Directive Yes / No Effective Date File Name Unknown Encounters Encounter Practice Location Reason(s) Diagnoses Date Provider Care Team Description For Visit Members [facility] Encounter for Sep-1 Mars Referring In Womens suprvsn of normal 9-201 Izabela. Provider: Jj HERNANDEZ, , third 7 [address] [email or web address] weeks Medical [facility], 1522, gestation of Center [address], [facility] , [facility], [address], [place] , [id number], [place], [place], [address]. tel:[phone] tel:[phone] , . [id number] tel: [phone] [facility] Encounter for Sep-0 Mars Referring In Womens suprvsn of normal 6-201 Izabela. Provider: Jj HERNANDEZ, , third 7 [address] [email or web address] weeks Medical [place], 1522, gestation of Center [address], , [facility], 120, Center , [id number], [place], [place], [address]. tel:[phone] tel: , [place]. [id number] tel: [phone] [facility] Encounter for Aug-2 Mars Referring In Womens suprvsn of normal 2-201 Izabela. Provider: Jj HERNANDEZ, , third 7 [address] [email or web address] weeks Medical [facility], 1522, gestation of Center [address], , [facility], [address], [place] , [id number], [place], [place], [address]. tel:[phone] tel: , [place]. [id number] tel: [phone] [facility] Encounter for Dec- Mars Referring In Womens suprvsn of normal 3-201 Izabela. Provider: Jj HERNANDEZ, , second 7 [address] [email or web address] weeks Medical [facility], 1522, gestation of Center [address], , [facility], [address], [place] , [id number], [place], [place], [address]. tel:[phone] tel: , [place]. [id number] tel: [phone] [facility] Encntr for Brandin-0 Mars Referring In Womens suprvsn of normal 8-201 Izabela. Provider: Jj HERNANDEZ, first preg, 7 [address] Box second Medical [place], 1522, [email or web address] weeks Center [address], gestation of , [facility], [address], [place] , [id number], [place], [place], [address]. tel:[phone] tel: , [place]. [id number] tel: [phone] [facility] Maternal care for Brandin-0 Mars Referring In Womens Ultrasound excess 8-201 Izabela. Provider: Jj HERNANDEZ, growth, second 7 [address] PO Box tri, [email or web address] weeks Medical [place], 1522, gestation of Center [address] [place] [address], Dr Shahid Janette [place], 120, Center , [id number], [place], [place], [address]. tel:[phone] tel: , [place]. [id number] tel: [phone] [facility] 13 weeks Apr-2 Mars Referring In Womens gestation of 5-201 Izabela. Provider: Jj HERNANDEZ, pregnancyEncntr 7 [address] PO Box for suprvsn of [facility], 1522, normal first Center [address] [place] [address], preg, first Shahid James, trimester 120, Center , [id number], [place], [place], [address]. tel:[phone] tel: , [place]. [id number] tel: [phone] Eonch [place] screen for Mar-2 Mars Referring In Womens infections w sexl 8-201 Izabela. Provider: Jj HERNANDEZ, mode of 7 [address] PO Box transmissEncounte [facility], 1522, r for screening Center [address] [place] [address], for oth Dr [facility] LAINEY, infec/parastc [address], [place] [id number], diseasesEncdaquan [place], [place], [address]. tel: normal , [phone] tel: [facility] , . [phone] trimesterEncounte tel: r for [phone] screening of mother9 weeks gestation of [facility] for Mar-0 Mars Referring In Womens suprvsn of normal 8-201 Izabela. Provider: Jj HERNANDEZ, first preg, first 7 [address] PO Box trimesterLess [facility], 1522, than 8 weeks Center [facility] [address], gestation of Shahid James, [address] [id number], [place], [place], [address]. tel:[phone] tel: , . [id number] tel: [phone] E[facility]ch [facility] MenometrorrhagiaE Mar-2 Mars Referring In [facility] for 8 Izabela. Provider: Health PA, surveillance of 6 [address] PO Box contraceptive Medical [place], 1522, pills Center [address], [facility], 120, Center , [id number], [place], [place], [address]. tel: [phone] tel: , [place]. [id number] tel: [phone] [facility] Menometrorrhagia Mar-2 Mars Referring In Women Ultrasound 8 Izabela. Provider: Health PA, 6 [address] PO Box Medical [place], 1522, Center [address], [facility], 120, Center , [id number], [place], [place], [address]. tel: [phone] tel: , [place]. [id number] tel: [phone] [facility] MenometrorrhagiaE Mar-2 Mars Referring In [facility]- Izabela. Provider: Health PA, surveillance of 6 [address] PO Box contraceptive Medical [place], 1522, pills Center [address], [facility], 120, Center , [id number], [place], [place], [address]. tel: [phone] tel: , [place]. [id number] tel: [phone] Family History Family Member Diagnosis Age At Onset Maternal Grandmother Cancer, breast Immunizations Vaccine Date Status Comments Tdap completed Source: New Immunization Record Payers Payer name Insurance type Covered constitution party ID Authorization(s) [facility] [id number] [employer] [place] - Medicaid [place] [id number] [facility] [id number] [employer] [place] - Medicaid MC [id number] Social History Type Description Quantity Date Captured Alcohol Use Details No Caffeine Use Details Unknown Tobacco Use Status Smoking Status Former smoker Vital Signs Date / Height Weight BMI Pulse Blood Temperature Respiratory Body Head BMI Time: Rate Pressure Rate Surface Circumference percentile Area 222.90 37.0 132/82 -2017 lbs 9 mm[Hg] 9:21 kg/m AM eter (2) Chief Complaint And [...] Order: Radiology Order Transvaginal Pelvic Ultrasound Ordered ([id number]) Future Order: Radiology Order Complete OB Ultrasound > 14 Ordered Weeks ([id number]) Date Type Problem Goal Intervention Status Start [...]
[2017-04-18 06:33] VITALS: BMI 35.4
[2017-04-18] MEDS: LR 1,000 ML IV PRN ×4 (06:46→16:31)
--- NOTE | 2017-04-18 08:48 | Anesthesia Preoperative Report ---
Anesthesia Epidural/Spinal Rec - Date and Time Date: 04/18/17 Preoperative Diagnosis: Induction; PIH Procedure: Labor Epidural Plan: Epidural - Vital Signs Vital Signs: Temperature 98.2 F 04/18/17 06:24 Pulse Rate 74 04/18/17 06:24 Respiratory Rate 16 04/18/17 06:24 Blood Pressure 148/90 H 04/18/17 06:24 Pulse Oximetry 98 04/18/17 06:24 NPO since: 529 /Para: P:1 Heart Rate: 133 Height and Weight: 5' 7" 102.5 kg BMI 35 - Medictaions & Allergies Inpatient Medications: Current Medications Acetaminophen (Tylenol) 500 - 1,000 mg PO Q4H PRN PRN Reason: Pain Al Hydroxide/Mg Hydroxide (Maalox Plus) 30 ml PO Q3H PRN PRN Reason: Indigestion Calcium Carbonate (Tums) 500 - 1,000 mg PO Q2H PRN PRN Reason: Indigestion Carboprost Tromethamine (Hemabate) 250 mcg IM O PRN PRN Reason: .Downtime Dextrose/Lactated Ringer's (Dextrose 5%-Lactated Ringers) 1,000 mls @ 125 mls/ hr IV .Q8H PRN PRN Reason: Labor Last Admin: 04/18/17 06:46 Dose: 125 mls/hr Oxytocin (Pitocin Drip) 30 unit in 500 mls @ 2 mls/hr IV .Q24H PRN; Protocol PRN Reason: Induction/Augmentation Last Admin: 04/18/17 06:46 Dose: 2 mls/hr Lactated Ringer's (Lactated Ringers) 1,000 mls @ 999 mls/hr IV .Q1H1M PRN Last Admin: 04/18/17 06:46 Dose: 999 mls/hr Lidocaine HCl (Xylocaine-Mpf 1% Vial) 0.2 mg ID O PRN PRN Reason: IV Start Methylergonovine Maleate (Methergine) 0.2 mg IM O PRN Misoprostol (Cytotec) 800 mcg MI ONCE PRN Allergies/Adverse Reactions: Allergies Allergy/AdvReac Type Severity Reaction Status Date / Time No Known Allergies Allergy Unverified 08/19/16 12:33 - Home Medications Home Medications: Home Medications Medication Instructions Recorded Confirmed Type ON NO MEDS #0 08/19/16 History Aspirin 04/05/17 History Vitamins 04/05/17 History - Medical History Respiratory: Reports: Asthma Cardiovascular: Reports: Hypertension (PIH) Gastrointestional: Reports: Morbid Obesity - Surgical History Anesthesia Reactions: None Hx Family Anesthesia Reaction: No History of Motion Sickness: No - Social History Smoking Status: Current every day smoker Packs per day: 0.5 Second Hand Exposure: No Substance Use Type: does not use Alcohol Intake Frequency: does not drink Hx Chewing Tobacco Use: No - Pertinent Findings Lab Data: CBC and BMP 04/18/17 06:42 04/18/17 06:42 BMP 04/18/17 06:42 Sodium 140 Potassium 3.6 Chloride 110 H Carbon Dioxide 18 L BUN 5.0 L Creatinine 0.7 Glucose 98 Calcium 9.1 Liver Function 04/18/17 Range/Units 06:42 Total Bilirubin 0.30 (0.20-1.30) MG/DL AST 31 (14-36) U/L ALT 28 (9-52) U/L Alkaline Phosphatase 113 (38-126) U/L Albumin 3.5 (3.5-5.0) G/DL - Physical Exam Respiratory Exam: lungs clear Cardiovascular Exam: regular rate and rhythm - Airway Assessment Mallampati Score: II TMD: 3 Fingerbreadths Neck Extension: fair Overall Assessment: no airway concerns - ASA ASA Score: 2 - Discussion Discussion: Discussed risks/options/alternatives of anesthesia and questions answered. Patient consents. Nursing pain assessment noted. Anesthesia Discussion: family member Attestation Statement: Prior to the delivery of any anesthetic medication, I examined the patient, developed the plan, obtained the patient's consent and discussed the risk and benefits of the procedure with the patient/guardian.
[2017-04-18] MEDS ORDERED: BUTORPHANOL 2 MG/ML INJECTION IVP PRN (11:44)
[2017-04-18] MEDS ORDERED: DiphenhydrAMINE 50 MG/ML INJECTION IVP PRN (14:00)
[2017-04-18] MEDS ORDERED: ROPIVACAINE 1% 10MG/ML INJ 200 MG, SUFentanil 50 MCG in NS 100 ML EPI PRN (14:00)
[2017-04-18] MEDS ORDERED: ONDANSETRON 4 MG/2 ML INJECTION IVP PRN (14:00)
[2017-04-18] MEDS ORDERED: NALOXONE 0.4 MG/ML INJECTION IVP PRN (14:00)
[2017-04-18] MEDS: CARBOPROST 250 MCG/ML INJECTION IM PRN ×2 (15:16→16:03)
[2017-04-18] MEDS: TRANEXAMIC ACID 1,000mg/10ml INJECTION IV ONE (15:42)
[2017-04-18] MEDS ORDERED: OXYTOCIN DRIP 30 UNIT/500 ML ML IV SCH (15:50)
[2017-04-18] MEDS ORDERED: HYDROCORTISONE 2.5% CREAM 30gm RECTALLY PRN (15:50)
[2017-04-18] MEDS ORDERED: DiphenhydrAMINE 25 MG CAPSULE PO PRN (15:50)
--- NOTE | 2017-04-18 16:32 | Anesthesia Postoperative Note ---
- Date and Time Date: 04/18/17 Time: 16:27 - Status Patient Participated in Evaluation: Patient Participated in Person Vital Signs: Temperature 97.7 F 04/18/17 14:40 Pulse Rate 73 04/18/17 14:40 Respiratory Rate 16 04/18/17 14:40 Blood Pressure 132/82 04/18/17 14:40 Pulse Oximetry 99 04/18/17 14:40 Respiratory Function: Airway Patent, Regular Respirations Cardiovascular Function: Regular Pulse EKG: Sinus Rhythm Mental Status: Alert and Oriented Pain Intensity: 0 Hydration: IV Infusing Complications During Recover: None Apparent - Follow-Up Instructions Instructions: Per Surgeon Additional Comments: I was called to Pt room for post delivery hemorrhage. Arrived at 1553. Stayed in room til 1630. I shut epidural pump off. Increased LR with pressure bag. Applied Misael Hugger to pt. VSS remained stable. Dr Mars and Dr Ontiveros present for hemostasis management. Pt stable now. Dr Mars will continue observation for bleeding.
--- NOTE | 2017-04-18 18:17 | Labor and Delivery Note ---
DATE OF DELIVERY 04/18/2017 ALON Muñoz is a 21-year-old 2, para 1 at 39 weeks gestational age who was brought in for a Pitocin induction this morning due to history of preeclampsia. Her membranes were ruptured artificially, returning clear fluids. She received an epidural. She progressed steadily throughout labor and only had to push for a short period of time. She had a spontaneous vaginal delivery of a viable male , Apgars 8/8, weight 3407 g, and name "Deuce". There was a nuchal cord x 1 that was reduced. Baby was vigorous at delivery so he was placed on mom's abdomen and the cord clamping was delayed for more than two minutes. The placenta delivered spontaneously. She had a small right vaginal laceration that was not bleeding so it was not repaired. She was having more bleeding than I would like so MEU was done. Her uterus was mildly atonic. She had some elevated blood pressures over the course of the day so I did not want to give her a dose of Methergine. Instead, I gave her 800 mcg of the rectal Cytotec. Feeling inside of her uterus, it felt like she might have some retained membranes so a wide curette was used to gently scrape inside the uterus but I did not get any tissue return. Her uterus continued to alternate between firm with minimal lochia and mildly atonic with moderate lochia. I gave her a dose of Hemabate since she has not had problems with her asthma in several years. Her bleeding did seem to slow down and her blood pressure and pulse were still normal at this point so I scrubbed out and went and did orders. When I checked on her again her uterus was again mildly atonic and I was able to express clots and more bleeding than I would like. I scrubbed back in and asked my partner, Dr. Ontiveros, as well as Juan F Walton in Anesthesia to come and assist me. Juan F helped with fluid management. The patient was given a dose of tranexamic acid. I placed a Bakri balloon and initially filled it with 140 mL. It initially stayed in place but then the uterus pushed it out when it contracted down. I also placed a Olivo catheter prior to the Bakri balloon to monitor urine output and we started a second IV site. She was also typed and screened and Lab was called to come and draw more blood. In total she received a second dose of Hemabate and a second dose of tranexamic acid after the appropriate time had passed. We attempted a second time to pass the Bakri balloon and this time only filled it with 30 mL. It stayed in for a while and then the uterus contracted down and pushed it out. At one point her blood pressures got down in the 70s/30s but this was only for a short time and resolved fairly quickly. Total estimated blood loss was 1000 mL. Her bleeding finally slowed down to minimal with good uterine tone after we continued to observe her. Questions were answered to her satisfaction and all the events were explained to her family as they were happening. Baby was also taken to SCN for respiratory distress. LYLE
[2017-04-18] MEDS: IBUPROFEN 800 MG TABLET PO PRN (22:35)
[2017-04-18] MEDS: HYDROCODONE/APAP 5mg/325mg TABLET PO PRN (23:32)
[2017-04-19] MEDS ORDERED: CEFAZOLIN PREMIX (MC ONLY) 2 GM/50 ML BAG IV ONE (01:32)
[2017-04-19] MEDS ORDERED: TRANEXAMIC ACID 1,000 MG in NS 100 ML IV ONE ×2 (01:51→01:56)
[2017-04-19] MEDS: TRANEXAMIC ACID 1,000mg/10ml INJECTION IV ONE (01:54)
[2017-04-19] MEDS: HYDROCODONE/APAP 5mg/325mg TABLET PO PRN ×2 (06:19→17:44)
--- NOTE | 2017-04-19 07:28 | OB/GYN Progress Note ---
OB-PP Progress Note - General PPD1 - Subjective Date: 04/19/17 Lochia: Minimal Pain: controlled Voiding: hunt still in place Subjective Comments: Feeling much better than last night. Baby is still in NSC. - Objective Vital Signs: Last Vital Signs Temp 98.0 F 04/19/17 02:15 Pulse 69 04/19/17 02:15 Resp 16 04/19/17 02:15 BP 105/53 04/19/17 02:15 Pulse Ox 99 04/19/17 02:15 Urine Output: good General: alert and oriented Abdomen: fundus firm, non-tender Extremities: non-tender Laboratory: Laboratory Results - last 24 hr 04/18/17 04/18/17 04/18/17 06:42 06:42 16:18 WBC 12.7 H D RBC 3.51 L Hgb 10.9 L D Hct 33.3 L MCV 94.9 MCH 31.1 MCHC 32.7 RDW Std Deviation 44.3 Plt Count 146 MPV 10.3 Fibrinogen Turbidity < 20 Sodium 140 Potassium 3.6 Chloride 110 H Carbon Dioxide 18 L Anion Gap 12 BUN 5.0 L Creatinine 0.7 GFR Calculation 106 BUN/Creatinine Ratio 7 Glucose 98 Calculated Osmolality 266 Calcium 9.1 Total Bilirubin 0.30 Icterus Index < 2 AST 31 ALT 28 Alkaline Phosphatase 113 Total Protein 7.2 Albumin 3.5 Globulin 3.7 H Albumin/Globulin Ratio 0.9 L Specimen Hemolysis < 15 Blood Type O Positive Antibody Screen Negative 04/18/17 04/18/17 16:18 19:29 WBC 16.0 H RBC 3.52 L Hgb 11.1 L Hct 33.0 L MCV 93.8 MCH 31.5 MCHC 33.6 RDW Std Deviation 43.4 Plt Count 141 MPV 10.2 Fibrinogen 329 Turbidity Sodium Potassium Chloride Carbon Dioxide Anion Gap BUN Creatinine GFR Calculation BUN/Creatinine Ratio Glucose Calculated Osmolality Calcium Total Bilirubin Icterus Index AST ALT Alkaline Phosphatase Total Protein Albumin Globulin Albumin/Globulin Ratio Specimen Hemolysis Blood Type Antibody Screen - Assessment Assessment: , Other (PP hemorrhage) - Plan Plan: routine care, other (DC hunt, DC 2nd IV site, work on pumping.)
[2017-04-19] MEDS: DOCUSATE CALCIUM 240 MG CAPSULE PO SCH (09:43)
[2017-04-19] MEDS: IBUPROFEN 800 MG TABLET PO PRN ×2 (14:51→22:43)
[2017-04-20 05:26] VITALS: PULSE 68
[2017-04-20] MEDS: HYDROCODONE/APAP 5mg/325mg TABLET PO PRN ×2 (06:14→20:15)
--- NOTE | 2017-04-20 08:17 | OB/GYN Progress Note ---
OB-PP Progress Note - General PPD2 Maternal Group B Strep: Negative Maternal blood type: O+ Maternal Rubella Status: Immune - Subjective Date: 04/20/17 Lochia: Minimal Pain: controlled Voiding: voiding - Objective Vital Signs: Last Vital Signs Temp 98.1 F 04/20/17 04:50 Pulse 68 04/20/17 04:50 Resp 16 04/20/17 04:50 BP 125/79 04/20/17 04:50 Pulse Ox 99 04/20/17 04:50 General: alert and oriented Extremities: non-tender - Assessment Assessment: - Plan Plan: routine care, discharge home, continue PNV
[2017-04-20] MEDS: DOCUSATE CALCIUM 240 MG CAPSULE PO SCH (08:48)
[2017-04-20] MEDS: IBUPROFEN 800 MG TABLET PO PRN ×2 (08:48→20:16)
[2017-04-20 13:10] VITALS: O2SAT 98
[2017-04-20 17:09] VITALS: BP 129/64; RESP 16; TEMP 97.5
== END 2017-04-20 20:45 | disposition home or self-care (01) | DRG 768 ==
LOC: MC 06:04
PROVIDERS: ADMIT Obstetrics & Gynecology; ATTEND Obstetrics & Gynecology